=== PATIENT | female | born 1985 | race Caucasian/White ===

== ENCOUNTER 2019-07-06 11:43 | Emergency (ER) | payer MEDICAID, SELFPAY ==
[2019-07-06 11:45] VITALS: BP 121/78; PULSE 93; RESP 17; TEMP 37.2; O2SAT 100; BMI 22.6
--- NOTE | 2019-07-06 12:00 | ED.DCSUM_ITS ---
History of Present Illness Chief Complaint: Headache Informant: Patient Onset: Days - 3 Context: Gradual Timing: Continuous Quality: Similar Prior Headaches - migraines, Throbbing Location: left retroorbital and left frontoparietal Current Severity: Severe Maximum Severity: Severe Worsened by: light, vomiting Relieved by: nothing Associated Symptoms: Nausea, Vomiting - started this AM, Blurred Vision, Photophobia. Negative for: Visual Changes, Visual Loss Injury: - - no injury/trauma Narrative: Feels like a typical migraine headache, suspects it has been triggered by drastic weather changes which she has been dealing with off and on all winter. She presents to the ER because this 1 has been more persistent. She denies any other unusual features. No thunderclap, the onset was gradual. No loss of consciousness. No other recent illnesses. She is healthy otherwise. Prior similar symptoms: Yes - Past Medical History (1) Migraine headache Status: Chronic Past Medical History - Allergies and Home Meds Allergies/Adverse Reactions: Allergies morphine Allergy (Verified 07/06/19 11:45) Rash STEROIDS Adverse Reaction (Uncoded 07/06/19 11:45) Other ANXIETY Primary Care Physician: [facility] Doctor,Out of [NON-STAFF] - As Needed Lives: Alone Drugs: None Review of Systems General: Denies: Chills, Fever, Sweats Eyes: Reports: Blurred Vision - bilaterally. Denies: Diplopia ENT: Denies: Bilateral ear pain, Rhinorrhea, Sore throat Cardiovascular: Denies: Chest pain, Palpitations Respiratory: Denies: Dyspnea, Cough, Dyspnea on exertion Gastrointestinal: Reports: Nausea, Vomiting. Denies: Abdominal pain, Diarrhea, Melena, Hematochezia Neurological: Reports: Headache. Denies: Weakness, Parasthesia, Numbness Physical Exam Vital Signs/Narrative: Vital Signs Temp Pulse Resp BP Pulse Ox 07/06/19 11:45 98.9 F 93 17 121/78 H 100 Inital Vital Signs reviewed: Yes General: Well nourished, Well developed Head: NC, AT Eyes: Perrl, EOMI ENT: Moist mucous membranes, No rhinorrhea Neck: Supple, No Lymphadenopathy, Nontender, No Meningismus Cardiovascular: Regular rate, Regular rhythm, No murmurs Respiratory: No distress, CTA bilaterally, Chest nontender Skin: Normal color, No rash, No Trauma Neuro: Alert, Oriented x3, Cranial nerves II-XII grossly intact, Normal Stre ngth, Normal Sensation, Normal Gait Psychological: Normal affect, Normal Mood Diagnostic/Tx/Re-eval - Medical Decision Making After treatment with Reglan and Toradol, patient is feeling much better and requesting to be discharged home. I do not think imaging is indicated at this time. Advised to follow-up for persistent/recurrent symptoms. ED Disposition - Plan for ED Patient: Disposition: Home or Assisted Living Diagnosis: Migraine headache Instructions: ED, Migraine (Classical) Referrals: [facility] Doctor,Out of [NON-STAFF] - As Needed
[2019-07-06] MEDS: Ketorolac 30 MG/ML Syringe IV (12:16)
[2019-07-06] MEDS: 0.9% Normal Saline 1,000 ML 999 ML IV (12:17)
[2019-07-06] MEDS: Metoclopramide 10 MG/2 ML Vial IV (12:17)
[2019-07-06 13:34] VITALS: BP 120/68; PULSE 80; RESP 16; O2SAT 98
== END 2019-07-06 13:35 | disposition home or self-care (01) ==
PROVIDERS: Emergency Provider Emergency Medicine
DX: G43.909 Migraine, unspecified, not intractable, without status migrainosus (principal); Z72.0 Tobacco use
CPT/HCPCS: 96361; 96374; 96375; 99283; J7030; A4216

== ENCOUNTER 2023-03-13 01:18 | Emergency (ER) | payer MEDICAID, SELFPAY ==
[2023-03-13 01:20] VITALS: BP 132/91; PULSE 100; RESP 12; TEMP 36.3; O2SAT 97; BMI 25.0
--- NOTE | 2023-03-13 01:39 | EX.ED.VIS.HA ---
HPI History of Present Illness Chief Complaint: Headache Informant: patient Narrative Narrative: 37-year-old female presenting to the emergency room with chief complaint of migraine. Patient states that she gets monthly migraines and can usually treat them at home with her triptan. She states that she is currently visiting the area staying with her parents. She states she began to have a headache [place] on Saturday describes as my usual migraine. She states there is pain behind her eyes and down the back of her neck. She notes that lights have tales. She denies aura endorses nausea denies vomiting. No rashes. She denies any arm or leg weakness or sensory changes. She does note some light sensitivity phonophobia PFSH PFS Medical History Anxiety Eating disorder in remission Fibromyalgia Migraine Home Medications topiramate 100 mg tablet 100 mg PO BID 07/06/19 [History Last Taken Unknown] Allergy/AdvReac Type Severity Reaction Status Date / Time Corticosteroids Allergy anxiety Verified 03/13/23 01:20 (Glucocorticoids) morphine Allergy Rash Verified 03/13/23 01:20 Surgical History H/O tubal ligation History of cholecystectomy Hx of tonsillectomy Social History Smoking Status: Current every day smoker tobacco type: cigarettes ROS ROS ED Constitutional Constitutional ED: Denies chills, fever(s) or weight loss Eyes Eyes: Denies blurry vision, change in vision or diplopia ENT ENT ED: Denies ear pain, rhinorrhea or sore throat Cardiovascular Cardiovascular: Denies chest pain, orthopnea, palpitations or racing heartbeat Respiratory/Chest Respiratory/Chest: Denies cough, dyspnea or orthopnea Gastrointestinal Gastrointestinal: Denies abdominal pain, diarrhea, nausea or vomiting Genitourinary Genitourinary ED: Denies dysuria, hematuria or urinary frequency Musculoskeletal Musculoskeletal: Denies arthralgias or myalgias Integumentary Denies abscess or rash Neurologic Neurologic: Reports headache(s) and other Details: Light sensitivity phonophobia ; Denies paresthesias or weakness Psychiatric Psychiatric: Denies anxiety, depression, suicidal ideation or suicidal thoughts Endocrine Endocrinology: Denies polydipsia, polyphagia or polyuria Allergic/Immunologic Allergic/Immunologic ED: Denies mouth swelling, tongue swelling or urticaria EXAM Physical Exam Narrative Exam Narrative: Patient more comfortable in a darkened room. Awake alert no acute distress Const Vital Signs: 03/13/23 01:20 Temperature 97.3 F L Temperature Source Temporal Pulse Rate 100 Respiratory Rate 12 Blood Pressure 132/91 H Blood Pressure Mean 104 Pulse Ox 97 Oxygen Delivery Method Room Air Positive well nourished and well developed General Appearance ED: well developed HEENT Reports normocephalic, head/scalp atraumatic and moist mucous membranes Eyes PERRL and EOMs intact bilaterally Neck no lymphadenopathy, supple, no meningeal signs and no JVD Resp normal respiratory effort and clear to auscultation bilaterally Cardio regular rate, regular rhythm and no murmurs GI normal to inspection, nondistended, normoactive bowel sounds and non-tender Palpation: soft Back/Spine no CVA tenderness and normal ROM Extremity normal to inspection General Extremety ED: Negative for edema General Extremity: Negative for edema Neuro oriented x3 and CN's II-XII intact bilaterally Sensorium / Orientation: alert Motor Exam: strength 5/5 throughout Psych mental status grossly normal Mood & Affect: Negative for depressed or tearful Skin no rashes or lesions noted and no wounds MDM MDM MDM Narrative Medical decision making narrative: Patient received fluids Reglan Toradol and Benadryl. She is improved. She will be discharged home. Discharge Plan Triage Chief Complaint: Headache ED Provider: Parvez Darling Dx/Rx/DC Orders Clinical Impression: Migraine headache Instructions: ED, Migraine (Classical) Prescriptions: No Action topiramate 100 MG tablet 100 mg PO BID Primary Care Provider: CAROLINA COLLINS Referrals: CAROLINA COLLINS [Other] Disposition Disposition: Home, Self Care
[2023-03-13] MEDS: Metoclopramide 10 MG/2 ML Vial IV (01:55)
[2023-03-13] MEDS: 0.9% Normal Saline (1000mL) 1,000 ML 999 ML IV (01:55)
[2023-03-13] MEDS: DiphenhydrAMINE 50 MG/ML Syringe 25 MG IV (01:55)
[2023-03-13] MEDS: Ketorolac 30 MG/ML Syringe IV (01:56)
== END 2023-03-13 03:29 | disposition home or self-care (01) ==
PROVIDERS: Emergency Provider Emergency Medicine; Visit Provider Emergency Medicine
DX: G43.909 Migraine, unspecified, not intractable, without status migrainosus (principal); F17.210 Nicotine dependence, cigarettes, uncomplicated
CPT/HCPCS: 96374; 96375; 99283; J7030; A4216

== ENCOUNTER 2023-08-19 16:59 | Emergency (ER) | payer BC, MEDICAID, SELFPAY ==
[2023-08-19 16:59] VITALS: BP 152/88; PULSE 84; RESP 16; TEMP 36.7; O2SAT 99; BMI 24.2
--- NOTE | 2023-08-19 17:02 | RAD_ITS ---
INDICATION: COUGH,PAIN EXAMINATION/TECHNIQUE: X-RAY - XR Chest 1 View COMPARISON: None. FINDINGS: LINES/DEVICES: None. LUNGS: No consolidation, edema or effusion. No pneumothorax. MEDIASTINUM AND CARDIOVASCULAR STRUCTURES: Cardiac silhouette not enlarged. BONES AND SOFT TISSUES: Right upper quadrant surgical clips are present. RAD/Chest 1 View (Portable) IMPRESSION: No radiographic evidence of acute cardiopulmonary disease. Electronically Signed: Jeb Whitfield MD at 17:34 EDT ,
--- NOTE | 2023-08-19 19:07 | ED.VIS.CHEST ---
HPI History of Present Illness Chief Complaint: Chest Other Informant: patient Onset/Context/Timing Onset: Today Activity at onset: gradual Timing: Continuous Quality: Positive for Burning and Sharp Location: Left Chest Worsened By: Movement of Torso Relieved By: Nothing Associated Symptoms: Negative for Nausea, Vomiting, Diaphoresis, Dyspnea, Cough, Fever, Lightheadedness, Acid Reflux or Palpitations Narrative Narrative: Patient presents with chest pain that began today. Patient states it came on gradually. Patient describes the pain as sharp and burning. Patient states it is over the left side of her chest. Patient states it is worse with movement. Patient states nothing seems to help with pain. Patient states it has been constant throughout the day today. Patient denies any shortness of breath or cough. Patient denies any nausea or vomiting. Patient denies any diaphoresis. [facility] Medical History Anxiety Eating disorder in remission Fibromyalgia Migraine Home Medications topiramate 100 mg tablet 100 mg PO BID 07/06/19 [History Last Taken Unknown] atomoxetine 40 mg capsule 40 mg PO DAILY 08/19/23 [History Last Taken Unknown] buspirone 15 mg tablet 15 mg PO TID 08/19/23 [History Last Taken Unknown] ergocalciferol (vitamin D2) 1,250 mcg (50,000 unit) capsule 1,250 mcg PO QWEEK 08/19/23 [History Last Taken Unknown] escitalopram oxalate 20 mg tablet 20 mg PO DAILY 08/19/23 [History Last Taken Unknown] hydroxyzine pamoate 25 mg capsule 25 - 50 mg PO TID PRN PRN anxiety 08/19/23 [History Last Taken Unknown] trazodone 100 mg tablet 100 mg PO QHS 08/19/23 [History Last Taken Unknown] Allergy/AdvReac Type Severity Reaction Status Date / Time Corticosteroids Allergy anxiety Verified 08/19/23 17:02 (Glucocorticoids) morphine Allergy Rash Verified 08/19/23 17:02 Surgical History H/O tubal ligation History of cholecystectomy Hx of tonsillectomy Social History Smoking Status: Current every day smoker tobacco type: cigarettes ROS ROS ED Constitutional Constitutional ED: Denies chills or fever(s) Eyes Eyes: Denies blurry vision or change in vision ENT ENT ED: Denies rhinorrhea or sore throat Cardiovascular Cardiovascular: Reports chest pain; Denies palpitations Respiratory/Chest Respiratory/Chest: Denies cough or dyspnea Gastrointestinal Gastrointestinal: Denies nausea or vomiting Genitourinary Genitourinary ED: Denies dysuria or hematuria Musculoskeletal Musculoskeletal: Reports back pain and neck pain Integumentary Denies abscess or rash Neurologic Neurologic: Denies headache(s) or weakness Allergic/Immunologic Allergic/Immunologic ED: Denies mouth swelling or urticaria EXAM Physical Exam Const Vital Signs: 08/19/23 16:59 08/19/23 16:59 08/19/23 19:08 Temperature 98.1 F 98.1 F Temperature Source Temporal Temporal Pulse Rate 84 84 92 Respiratory Rate 16 16 18 Blood Pressure 152/88 H 152/88 H 116/81 H Blood Pressure Mean 109 109 92 Pulse Ox 99 99 97 Oxygen Delivery Method Room Air Room Air Room Air 08/19/23 20:39 Temperature 97.2 F L Temperature Source Oral Pulse Rate 68 Respiratory Rate 15 Blood Pressure 124/77 H Blood Pressure Mean 92 Pulse Ox 99 Oxygen Delivery Method Room Air Positive well nourished, well developed and obese General Appearance ED: well developed and NAD Nutritional Appearance: obese HEENT Reports moist mucous membranes Neck supple and no JVD Chest Wall Chest Narrative: There is tenderness over the left anterior chest. Patient states this is different than the pain that caused her to come to the emergency department. Resp normal respiratory effort and clear to auscultation bilaterally Cardio regular rate and regular rhythm GI soft to palpation, non-tender and non-distended Neuro oriented x3, CN's II-XII intact bilaterally and no sensory deficits noted Sensorium / Orientation: awake and alert Motor Exam: strength 5/5 throughout Psych mental status grossly normal Heart Score History: Slightly/Non-Suspicious ECG: Normal Age: </= 45 years Risk Factors: 1 or 2 Risk Factors Troponin: </= Normal Limit Score: 1 MDM MDM MDM Narrative Medical decision making narrative: Differential diagnosis includes musculoskeletal pain, anxiety, cardiac dysrhythmia, cardiac ischemia, electrolyte abnormality, and viral illness. EKG will be obtained to assess for cardiac dysrhythmia and cardiac ischemia. Chest x-ray will be obtained to assess for pneumonia and pneumothorax. CBC will be obtained to assess for leukocytosis and anemia. Basic metabolic profile will be obtained to assess for electrolyte abnormality and renal function. High-sensitivity troponin will be obtained to assess for cardiac ischemia. COVID-19, influenza, and RSV will be obtained to assess for viral illness. Lab Data Attestation: I reviewed the patient's lab results. Lab results narrative: CBC was reviewed and showed a slight leukocytosis of 11.5. The remainder was within normal limits. Basic metabolic profile was reviewed and was within normal limits. High-sensitivity troponin was reviewed and was less than 3. COVID-19 PCR was reviewed and was negative. Influenza PCR was reviewed and was negative for influenza A and influenza B. RSV PCR was reviewed and was negative. Labs: Laboratory Results - last 24 hr 08/19/23 19:26 WBC 11.5 H RBC 4.28 Hgb 13.4 Hct 40.0 MCV 93.5 MCH 31.3 MCHC 33.5 RDW Std Deviation 42.0 RDW Coeff of [place] 12.1 Plt Count 241 MPV 10.2 Immature Gran % (Auto) 0.300 Neut % (Auto) 62.9 Lymph % (Auto) 28.5 Sullivan % (Auto) 6.0 Eos % (Auto) 1.6 Baso % (Auto) 0.7 Absolute Neuts (auto) 7.2 Absolute Lymphs (auto) 3.26 Nucleated RBC % 0 Sodium 138 Potassium 4.3 Chloride 105 Carbon Dioxide 27.0 Anion Gap 6 BUN 10 Creatinine 0.67 Estim Creat Clear Calc 83.38 Est GFR (MDRD) Af Amer 128 Est GFR (MDRD) Non-Af 106 BUN/Creatinine Ratio 14.9 Glucose 90 Calcium 8.8 Troponin I High Sens < 3 L Radiography Chest X-Ray - ED: 1 View, Read by ED Physician, Read by Radiologist and No Acute Disease Diagnostic Testing: Clinical Impression(s) from Imaging Studies Chest X-Ray 08/19/23 17:02 IMPRESSION: No radiographic evidence of acute cardiopulmonary disease. Electronically Signed: Jeb Whitfield MD at 17:34 EDT , Portable 1 view chest x-ray was obtained. On my independent interpretation, lung kyle are clear. There is normal cardiac silhouette. Bony thorax is normal. There is no acute process noted. Radiologist also interpreted the x-ray and agrees. EKG Initial EKG: Attestation: I personally reviewed and interpreted this EKG as follows: Interpretation: Sinus Rhythm (80) and No Acute Injury Pattern Comments: EKG was obtained. On my independent interpretation, it showed a normal sinus rhythm with a rate of 80. AK interval, QRS interval, and QTc intervals were all normal. [place] was normal. There are no acute ST or T wave changes. Prior EKG tracings: not available for review Prior: No Prior Treatment and Re-Evaluation :: Patient was advised of her findings. Patient was given a dose of Toradol here. Patient has a HEART score of 1. Patient was advised that this is low risk for acute cardiac event. Patient was instructed to follow-up with her primary care physician in 5 to 7 days. Patient understood and was agreeable with the plan. All questions were answered. Discharge Plan Triage Chief Complaint: Chest Other ED Provider: Tai Dow Dx/Rx/DC Orders Clinical Impression: Chest pain of uncertain etiology, Elevated blood pressure reading Instructions: ED Chest Pain, Uncertain Cause Prescriptions: No Action topiramate 100 MG tablet 100 mg PO BID buspirone 15 mg tablet 15 mg PO TID hydroxyzine pamoate 25 mg capsule 25 - 50 mg PO TID PRN PRN (Reason: anxiety) escitalopram oxalate 20 mg tablet 20 mg PO DAILY atomoxetine 40 mg capsule 40 mg PO DAILY trazodone 100 mg tablet 100 mg PO QHS ergocalciferol (vitamin D2) 1,250 mcg (50,000 unit) capsule 1,250 mcg PO QWEEK Primary Care Provider: CAROLINA COLLINS Referrals: CAROLINA COLLINS [Other] - 3-5 Days Disposition Disposition: Home, Self Care
[2023-08-19 19:08] VITALS: BP 116/81; PULSE 92; RESP 18; O2SAT 97
--- NOTE | 2023-08-19 19:08 | EKG12_ITS ---
Test Reason : DYSRHYTHMIA Blood Pressure : / mmHG Vent. Rate : 080 BPM Atrial Rate : 080 BPM P-R Int : 168 ms QRS Dur : 078 ms QT Int : 380 ms P-R-T Axes : 067 078 048 degrees QTc Int : 438 ms Normal sinus rhythm Normal ECG No previous ECGs available Confirmed by DOROTEO MALIK, EMELY ([id number]), associate editor TIERRA SOLANO ([id number]) on 08/21/2023 9:38:43 AM Referred By: Confirmed By:EMELY SADLER MD
[2023-08-19 19:47] LABS: Absolute Lymphocyte Count 3.26 X10^3/uL (0.83-4.51); Absolute Neutrophil Count 7.2 X10^3/uL (2.0-7.7); Basophil# 0.08 X10^3/uL; Basophil% 0.7 % (0-1); Eosinophil# 0.18 X10^3/uL; Eosinophils% 1.6 % (0-5); Hemoglobin 13.4 g/dL (12.0-15.0); Lymphocyte # 3.26 X10^3/ul (0.83-4.51); Lymphocyte % 28.5 % (19-41); Mean Corp Hgb Conc 33.5 g/dL (32-36); Mean Corpuscular Hgb 31.3 pg (27.0-32.0); Mean Corpuscular Volume 93.5 fL (81-99); Mean Platelet Vol. 10.2 fl (6.2-12.0); Monocyte# 0.69 X10^3/uL; NRBC Flagged by Analyzer 0 % (0-5); Neutrophil % 62.9 % (47-70); Platelet Count 241 K/mm3 (150-450); RBC Distribution Width CV 12.1 % (11.6-14.6); Red Blood Count 4.28 M/mm3 (4.2-5.4); White Blood Count 11.5 K/mm3 (4.4-11.0)
[2023-08-19 19:57] LABS: Anion Gap 6 (5-15); BUN 10 mg/dL (7-18); BUN/Creat Ratio 14.9 RATIO (10-20); Calcium,Total 8.8 mg/dL (8.5-10.1); Chloride 105 mmol/L (98-107); Creatinine, Serum 0.67 mg/dL (0.55-1.02); EST Glomerular Filtration Rate 106 mL/min (>60); Est Glom Filt Rate - Afr Amer 128 mL/min (>60); Estimated Creatinine Clearance 83.38 ml/min; Glucose 90 mg/dL (74-106); Potassium 4.3 mmol/L (3.5-5.1); Sodium Level 138 mmol/L (136-145); Troponin-I HS < 3 pg/mL (3.0-54.0)
[2023-08-19 20:39] VITALS: BP 124/77; PULSE 68; RESP 15; TEMP 36.2; O2SAT 99
[2023-08-19] MEDS: Ketorolac 30 MG/ML Syringe IV (21:48)
[2023-08-19 21:52] VITALS: BP 118/63; PULSE 72; RESP 16; TEMP 36.7; O2SAT 100
== END 2023-08-19 21:53 | disposition home or self-care (01) ==
PROVIDERS: Emergency Provider Emergency Medicine; Visit Provider Emergency Medicine
DX: R07.9 Chest pain, unspecified (principal); R03.0 Elevated blood-pressure reading, without diagnosis of hypertension; F17.210 Nicotine dependence, cigarettes, uncomplicated; Z79.899 Other long term (current) drug therapy
CPT/HCPCS: 71045; 80048; 84484; 85025; 87631; 93005; 96374; 99282; A4216